=== PATIENT | female | born 1965 | race Caucasian/White ===

== ENCOUNTER 2020-09-23 10:35 | Emergency (ER) | payer BC, SELFPAY ==
[2020-09-23 10:54] VITALS: BP 182/98; PULSE 84; RESP 16; TEMP 36.3; O2SAT 97; BMI 31.1
[2020-09-23] MEDS: Ketorolac Tromethamine 15 MG/ML VIAL 30 MG IM (12:35)
--- NOTE | 2020-09-23 12:44 | ED.BACK ---
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 Patient tells me that she felt some pain on Wednesday and then yesterday she was doing some heavy lifting when she feels like the pain got worse. Pain radiates into the left buttocks and left leg. There is no numbness or tingling. No saddle anesthesia. No incontinence. No fevers or chills. Patient is ambulatory. She does have a history of herniated discs and this feels similar to her previous episodes. No fall or trauma Related Data Previous Rx's Medication Instructions Recorded cyclobenzaprine 10 mg PO TID PRN #10 tab 09/23/20 ibuprofen 800 mg PO Q8H PRN #20 tab 09/23/20 lidocaine [Lidoderm] 1 patch TOPICAL DAILY #15 ea 09/23/20 oxycodone 5 mg PO Q6H PRN #5 tab 09/23/20 Allergies Allergy/AdvReac Type Severity Reaction Status Date / Time amoxicillin [AMOXICILLIN] Allergy Intermediate WHOLE BODY Verified 09/23/20 10:53 RASH ampicillin [AMPICILLIN] Allergy Mild RASH Verified 09/23/20 10:53 penicillin G Allergy Unknown Unknown Verified 09/23/20 10:53 Review of Systems Review of Systems: Yes all other systems are reviewed and are negative Constitutional: Constitutional: Reports no additional constitutional complaints, Denies body ache(s), Denies chills, Denies fever(s), Denies headache(s) and Denies weakness Eyes: Eyes: Reports no additional eye complaints and Denies change in vision ENT: Reports system reviewed and no additional complaints, except as documented, Denies dizziness, Denies headache(s), Denies nasal congestion, Denies nasal discharge and Denies neck pain Cardiovascular: Cardiovascular: Reports no additional cardiovascular complaints, Denies chest pain, Denies leg edema and Denies dyspnea Respiratory: Respiratory: Reports no additional respiratory complaints, Denies cough and Denies dyspnea Gastrointestinal: Gastrointestinal: Reports no additional gastrointestinal complaints, Denies abdominal pain, Denies diarrhea, Denies nausea and Denies vomiting Genitourinary: Genitourinary: Reports no additional female genitourinary complaints and Denies urinary incontinence Musculoskeletal: Musculoskeletal: Reports no additional musculoskeletal complaints, Reports back pain, Denies arthralgias, Denies joint swelling, Denies neck pain, Denies numbness and Denies tingling Integumentary/Breasts: Skin/Breast: Reports system reviewed and no additional complaints, except as docu and Denies rash Neurologic: Reports system reviewed and no additional complaints, except as documented, Denies Abnormal speech present, Denies dizziness, Denies headache(s), Denies numbness, Denies tingling and Denies weakness PMFSH Past Medical History Attestation statement: The following information was validated with the patient. Source: old records reviewed and nursing notes reviewed Medical History Arthritis HTN (hypertension) Social History Social History Advance Directives: Yes Advance Directives Information Provided: Yes Advance Directives on File: No Physical Exam Vital Signs: Vital Signs: Last Vital Signs Temp 97.4 F 09/23/20 10:54 Pulse 84 09/23/20 10:54 Resp 16 09/23/20 10:54 BP 182/98 H 09/23/20 10:54 Pulse Ox 97 09/23/20 10:54 Body Mass Index 31.1 Const: General: cooperative, healthy appearing, comfortable and no acute distress Orientation/consciousness: patient oriented x3 Limitations: no limitations HENMT: Head: Yes normal to inspection Ears: hearing grossly normal bilaterally General nose exam: Normal external nose present Face and sinus: Yes normal facial exam Mouth: Normal oral and palatal mucosa present Throat: Yes posterior oropharynx normal Eyes: General: appearance normal, both eyes and all related structures Pupils: Equal, round and reactive pupils present Neck: Neck: Yes normal visual inspection Chest: Chest palpation & inspection: normal inspection of the chest Resp: Effort & Inspection: normal respiratory effort Auscultation: clear to auscultation bilaterally Cardio: Rate: regular rate Rhythm: regular rhythm Peripheral pulses: Peripheral pulses 2+ throughout GI: Inspection: Yes normal to inspection Palpation (GI): Soft to palpation and nontender Auscultation: normal bowel sounds Back/Spine/Pelvis: Other: No midline tenderness Tenderness to the left SI joint and over the left lumbar soft tissue area and into the left buttocks. Palpable muscle spasm. Pain is worsened with lumbar flexion and extension. Thoracic/Lumbar Spine: thoracic and lumbar spine normal to inspection Skin: General skin exam: no rashes or lesions noted Neuro: General: patient oriented x3, no focal motor deficits and normal sensation to monofilament Cranial nerves: Yes Equal, round and reactive pupils present Cognition (Neuro): normal cognition Speech: No Abnormal speech present Gait exam (Neuro): Normal gait present Motor exam (neuro): 5/5 motor strength present throughout Sensory Exam: Normal double simultaneous stimulation for sensation Deep tendon reflexes (DTR's): Right patellar reflex intensity grade: 2+ and Left patellar reflex intensity grade: 2+ Extrem: General: Yes normal to inspection Course Course Course Narrative: Acute on chronic left lower back pain. No midline tenderness so imaging not warranted. No red flag symptoms or neurological deficits so emergent MRI not warranted. Patient given Toradol IM with improvement of symptoms. We discussed follow-up with her outpatient providers to determine if she needs any other testing or physical therapy services. Reviewed worrisome signs and symptoms when to return to the emergency department. Comfortable discharge home. MDM - Back Pain/Injury Medical Records Attestation: I reviewed the patient's medical records. Lab Data Attestation: I reviewed the patient's lab results. Discharge Plan Discharge Clinical Impression: Strain of lumbar region Patient Disposition: Home, Self-Care Instructions: Low Back Strain (ED), Lower Back Exercises (ED) Additional Instructions: Heat or ice Gentle stretching Follow-up with PCP Prescriptions: New cyclobenzaprine 10 mg tablet 10 mg PO TID PRN (Reason: muscle spasm) Qty: 10 RF: 0 lidocaine [Lidoderm] 5 % adhesive patch,medicated 1 patch topical DAILY Qty: 15 RF: 0 ibuprofen 800 mg tablet 800 mg PO Q8H PRN (Reason: pain) Qty: 20 RF: 0 oxycodone 5 mg tablet 5 mg PO Q6H PRN (Reason: pain) Qty: 5 RF: 0 Referrals: Karrie Schmitz MD [Primary Care Provider] - 2 days Stand Alone Forms: Work/School Release Interventions: ED Discharge Assessment Last Done: 09/23/20 12:40 Discharge Date/Time: 09/23/20 12:40 Print Language: Bulgarian
== END 2020-09-23 12:40 | disposition home or self-care (01) ==
PROVIDERS: Emergency Provider Emergency Medicine Emergency Medical Services; PCP Internal Medicine
DX: S39.012A Strain of muscle, fascia and tendon of lower back, initial encounter (principal); X50.0XXA Overexertion from strenuous movement or load, initial encounter; Y93.9 Activity, unspecified; Y92.9 Unspecified place or not applicable; Y99.9 Unspecified external cause status
CPT/HCPCS: 96372; 99283; 99284; J1885

== ENCOUNTER 2020-11-25 21:36 | Emergency (ER) | payer BC, SELFPAY ==
--- NOTE | ~2020-11-25 | XR_ITS ---
EXAMINATION: LEFT ANKLE, LEFT FOOT CLINICAL INFORMATION: Pain after fall COMPARISON: None TECHNIQUE: 3 views left ankle, 3 views left foot FINDINGS: There is lateral soft tissue swelling adjacent to the lateral malleolus, but no fracture is seen. The ankle mortise appears stable. The foot appears unremarkable. A small enthesis is noted at the insertion site of the Achilles tendon. XR/XR foot LT min 3V IMPRESSION: There is soft tissue swelling laterally, but no evidence of an acute osseous injury.
--- NOTE | ~2020-11-25 | XR_ITS ---
EXAMINATION: LEFT ANKLE, LEFT FOOT CLINICAL INFORMATION: Pain after fall COMPARISON: None TECHNIQUE: 3 views left ankle, 3 views left foot FINDINGS: There is lateral soft tissue swelling adjacent to the lateral malleolus, but no fracture is seen. The ankle mortise appears stable. The foot appears unremarkable. A small enthesis is noted at the insertion site of the Achilles tendon. XR/XR ankle LT min 3V IMPRESSION: There is soft tissue swelling laterally, but no evidence of an acute osseous injury.
[2020-11-25 22:13] VITALS: BP 130/84; PULSE 68; RESP 16; TEMP 36.4; O2SAT 98; BMI 31.3
[2020-11-25 22:15] LABS: MANUAL DIFF FLAG NO
[2020-11-25 22:18] LABS: Basophils Percent Auto 0.4 % (0-2); Eosinophils Absolute Auto 0.3 X10*3/uL (0.0-0.4); Eosinophils Percent Auto 2.9 % (0-4); Hematocrit 32.2 % (37-47); Hemoglobin 9.8 g/dl (12.0-16.0); Imm Gran Abs Auto 0.03 X10*3/uL (0.00-0.03); Imm Gran Pct Auto 0.3 % (0.0-0.4); Lymphocytes Absolute Auto 2.7 X10*3/uL (1.2-4.9); Lymphocytes Percent Auto 23.3 % (20-40); Mean Corpuscular HGB Conc 30.4 g/dl (31.0-35.0); Mean Corpuscular Hemoglobin 23.2 pg (27.0-33.0); Mean Corpuscular Volume 76.1 fL (80-98); Mean Platelet Volume 11.1 fL (9.4-12.3); Monocytes Absolute Auto 0.9 X10*3/uL (0.1-1.2); Neutrophils Absolute Auto 7.4 X10*3/uL (2.0-8.3); Neutrophils Percent Auto 65.1 % (45-73); Platelet Count 257 X10*3/uL (160-400); Red Blood Count 4.23 X10*6/uL (4.20-5.50); Red Cell Distribution Width 18.7 % (11.0-16.0); White Blood Count 11.4 X10*3/uL (4.8-10.8)
[2020-11-25 22:38] LABS: Alanine Aminotransferase 20 U/L (0-31); Albumin Level 4.3 g/dL (3.5-5.0); Alkaline Phosphatase 59 U/L (39-117); Anion Gap 12 (12-20); Aspartate Amino Transferase 21 U/L (5-31); Bilirubin Total 0.4 mg/dL (0.0-1.0); Blood Urea Nitrogen 14 mg/dL (9-16); Calcium 9.1 mg/dL (8.4-10.2); Carbon Dioxide 27 mmol/L (22-29); Chloride 102 mmol/L (96-108); Creatinine Clr Calc Pharmacy 76.8; Estimated Glomerular Filt Rate > 60; Glucose Random 112 mg/dL (60-115); Potassium 3.7 mmol/L (3.3-5.1); Sodium 137 mmol/L (135-145); Total Protein 7.1 g/dL (6.5-8.0)
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
== END 2020-11-26 01:17 | disposition home or self-care (01) ==
PROVIDERS: Emergency Provider Emergency Medicine; PCP Internal Medicine
DX: S93.402A Sprain of unspecified ligament of left ankle, initial encounter (principal); M25.572 Pain in left ankle and joints of left foot; W01.0XXA Fall on same level from slipping, tripping and stumbling without subsequent striking against object, initial encounter; Y93.9 Activity, unspecified; Y92.9 Unspecified place or not applicable; Y99.9 Unspecified external cause status; Z79.899 Other long term (current) drug therapy
CPT/HCPCS: 36415; 73610; 73630; 80053; 85025; 99283

== ENCOUNTER 2021-11-24 15:04 | Outpatient (REF) | payer BC, SELFPAY ==
[2021-11-28 03:52] LABS: HPV mRNA E6/E7 rflx Not Detected (Not Detected)
== END 2021-11-24 15:05 | disposition home or self-care (01) ==
LOC: HO.LNP 15:04
PROVIDERS: Visit Provider Obstetrics & Gynecology
DX: Z01.419 Encounter for gynecological examination (general) (routine) without abnormal findings (principal); N94.89 Other specified conditions associated with female genital organs and menstrual cycle
CPT/HCPCS: 87624; 88142

== ENCOUNTER 2022-02-04 13:43 | Outpatient (REF) | payer BC, SELFPAY ==
--- NOTE | ~2022-02-04 | US_ITS ---
EXAMINATION: US PELVIS COMPLETE CLINICAL INFORMATION: Adnexal fullness COMPARISON: CT of abdomen pelvis 12/18/2018 TECHNIQUE: Transabdominal and transvaginal imaging was performed. FINDINGS: The uterus is of normal size and echogenicity measuring 9.0 x 5.0 x 5.9 cm. A regular homogeneous endometrium is identified measuring 0.6 cm. Multiple small uterine myomas the largest a 2.0 cm subserosal myoma in the right fundus. A 1.5 cm, in the right fundus demonstrates a less than 50% submucosal component. The right ovary was not identified sonographically. The left measures 2.5 x 1.5 x 2.0 cm for a volume of 3.2 mL. A 1.4 cm left para ovarian simple cyst, no imaging follow-up recommended. Nabothian cysts in the cervix. There is no pelvic free fluid. US/US pelvic and transvaginal IMPRESSION: A 1.4 cm left paraovarian simple cyst, no imaging follow-up recommended. The right ovary was not identified sonographically. Multiple small uterine myomas the largest a 2.0 cm subserosal myoma in the right fundus. A 1.5 cm, in the right fundus demonstrates a less than 50% submucosal component.
== END 2022-02-04 13:44 | disposition home or self-care (01) ==
LOC: HO.US 13:43
PROVIDERS: Visit Provider Obstetrics & Gynecology
DX: N94.9 Unspecified condition associated with female genital organs and menstrual cycle (principal)
CPT/HCPCS: 76830; 76856

== ENCOUNTER → 2022-03-16 13:24 | Outpatient (BNVA) | payer BC, SELFPAY | PROVIDERS: PCP Internal Medicine; Visit Provider Obstetrics & Gynecology | DX: Z13.89 Encounter for screening for other disorder (principal) ==